=== PATIENT | male | born 1955 | race Caucasian/White ===

== ENCOUNTER 2021-12-15 15:22 | Outpatient (CLI) | payer SELFPAY | END 2021-12-15 15:23 | disposition EMS.NT | LOC: EMS 15:22 | DX: R55 Syncope and collapse (principal) ==

== ENCOUNTER 2024-03-14 00:25 | Emergency (ER) | payer MEDICARE ==
--- NOTE | 2024-03-14 03:14 | ED Physician Documentation ---
History of Present Illness - Stated complaint Stated Complaint: CHEST PX - Chief complaint Chief Complaint: Cardiac - History obtained from History obtained from: Patient, EMS - Additonal information Additional information: The patient comes to the emergency department chief complaint of racing heart. He states that it began about an hour and a half prior to him coming to the ED. He has had SVT since he was in his 20s normally can get it to stop with Valsalva maneuvers. However, he states that I did not work this time so he walked over to the fire station. The medics found him to be in SVT with a rate in the 170s and after their own attempts at helping him Valsalva did not work, they placed an IV and give him 6 of adenosine. They state that this was able to convert the patient from SVT to normal sinus rhythm. The patient is without complaints. He states he never had chest pain or shortness of breath. He has not been ill with anything recently. PD PAST MEDICAL HISTORY - Past Medical History Past Medical History: Yes Cardiovascular: Arrhythmia - Past Surgical History General: Appendectomy - Present Medications Home Medications: Ambulatory Orders Medication Instructions Recorded Confirmed No Known Home Medications 03/14/24 03/14/24 - Allergies Allergies/Adverse Reactions: Allergies Allergy/AdvReac Type Severity Reaction Status Date / Time No Known Drug Allergies Allergy Verified 03/14/24 00:32 - Social History Does the pt smoke?: Yes Smoking Status: Current some day smoker Does the pt drink ETOH?: Yes PD ED PE NORMAL - Vitals Vital signs reviewed: Yes - General General: Alert and oriented X 3, No acute distress, Well developed/nourished - HEENT HEENT: Atraumatic, EOMI, Moist mucous membranes - Neck Neck: Supple, no meningeal sign - Cardiac Cardiac: RRR, No murmur - Respiratory Respiratory: No respiratory distress, Clear bilaterally - Abdomen Abdomen: Soft, Non tender, Non distended - Derm Derm: Normal color, Warm and dry, No rash - Extremities Extremities: No deformity, No edema, No calf tenderness / cord - Neuro Neuro: Other (Grossly intact) - Psych Psych: Normal mood, Normal affect Results - Vitals Vitals: Vital Signs - 24 hr 03/14/24 03/14/24 03/14/24 00:32 01:00 01:30 Temperature 36.6 C Heart Rate 88 79 75 Respiratory 17 16 14 Rate Blood Pressure 140/96 H 134/90 H 126/92 H O2 Saturation 96 96 96 03/14/24 02:30 Temperature Heart Rate 62 Respiratory 20 Rate Blood Pressure 129/86 H O2 Saturation 98 Oxygen O2 Source Room air - EKG (time done) 0036 EKG releavant findings:: EKG personally interpreted by author of this note. Relevant findings are: Rate: Rate (enter#) (85) Rhythm: NSR, LAE (Borderline) [place]: LAD (Borderline) Intervals: Normal NM QRS: Normal Ischemia: Normal ST segments Compare to prior EKG: Old EKG unavailable Computer interpretation: Agree with computer PD Medical Decision Making - ED course Complexity details: reviewed old records, reviewed results, re-evaluated patient, considered differential, d/w patient ED course: The patient was well-appearing in the emergency department and had no further symptoms. He was found to be in normal sinus rhythm on the monitor for 2 hours and I felt he was stable for discharge home. We have discussed the need for follow-up with his primary doctor and possibly cardiology. We have discussed the usual indications for return. Departure - Departure Disposition: 01 Home, Self Care Clinical Impression: Tachyarrhythmia Condition: Stable Instructions: ED Tachycardia Pat PSVT Comments: Your EKG and rhythm have been great here. The medics were able to get your rhythm corrected with the medication they gave you prior to coming here. Please follow-up with your primary doctor and order processor, should you begin to have more frequent episodes of the fast heartbeat. If this happens again and you cannot get it to stop, or if you develop chest pain or shortness of breath, please return to the emergency department. Forms: PCP List
[2024-03-14 05:43] VITALS: BP 107/78; O2SAT 95
== END 2024-03-14 05:35 | disposition home or self-care (01) ==
LOC: EDUNIT# → ED 00:25
DX: R00.0 Tachycardia, unspecified (principal); F17.200 Nicotine dependence, unspecified, uncomplicated
CPT/HCPCS: 93005; 99283; 99284